=== PATIENT | male | born 1965 | race Two or more races ===

== ENCOUNTER 2024-06-19 16:47 | Emergency (ER) | payer SELFPAY ==
--- NOTE | 2024-06-19 16:54 | EKG_ITS ---
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
[2024-06-19 16:56] VITALS: BP 141/79; PULSE 76; RESP 16; TEMP 36.3; O2SAT 99; BMI 22.6
--- NOTE | 2024-06-19 17:04 | EDNOTE_ITS ---
ED General RME/HPI General Chief complaint: Altered Mental Status Stated complaint: POSSIBLE INTOXICATED Time Seen by Provider: 06/19/24 16:54 Arrival date/time: 06/19/24 16:47 RME / HPI RME / HPI narrative: 58 year old male presents to the ED BIBA from [facility] for evaluation of possible intoxication. Per medics, staff at [facility] reported patient admitted smoking a vape pen and shortly after complained of not feeling well. State he became very tired and less responsive which prompted staff to give 4mg IN Narcan. Medics state on their arrival noted blood pressure to be 80/52. State patient was given ~ 1L IVF en route and repeat SBP 130's. No other complaints reported. While in the ED patient complains of dry mouth and feeling tired. No other complaints reported. Related Data Allergies Allergy/AdvReac Type Severity Reaction Status Date / Time No Known Allergies Allergy Verified 06/19/24 17:22 Review of Systems Review of Systems Narrative Review of Systems: GEN: No fever, no chills EYES: No discharge, no visual changes, no pain HEENT: No ear pain, no congestion, no sore throat PULM: No shortness of breath, no cough, no congestion CV: No chest pain, no palpitations GI: No nausea, no vomiting, no diarrhea, no pain, no constipation : No frequency, no urgency, no dysuria MUSC/SKEL: No joint pain, no back pain SKIN: No rash NEURO: No weakness, no headache Past Medical History Past Medical History CARDIAC: Negative Congestive Heart Failure RESPIRATORY: Negative Chronic Obstructive Pulmonary Disease (COPD) GENITOURINARY: Negative Renal Disease ENDOCRINE: Negative Diabetes Mellitus Type 1 or Diabetes Mellitus Type 2 Social History SMOKING STATUS: Current some day smoker ED Exam Narrative Physical exam: GENERAL APPEARANCE: alert and oriented x 4, well-developed, well-nourished, no acute distress HEENT: Normocephalic, atraumatic; pupils 7mm bilaterally and reactive to light; EOMI; mucous membranes pink, moist; oropharynx clear NECK: Supple LUNGS: CTABL; no wheezes, no rales, no rhonchi HEART: Regular rate, regular rhythm; normal S1, S2; no murmurs ABDOMEN: non distended; normal BS; soft, no tenderness, no guarding, no rebound; no masses, no organomegaly, no hernia BACK: no CVA tenderness EXTREMITIES: atraumatic; no edema NEUROLOGIC: awake; alert and oriented x4; cranial nerves II-XII grossly intact; no focal sensory or motor deficits PSYCHIATRIC: appropriate mood and affect SKIN: warm, dry, normal color; no rashes. Course Course Course Narrative: 1800: Patients care signed out to Dr. Hawkins pending labs, reassessment, and final disposition. Quality Measures none Orders Category Date Time Status EKG (ED ONLY) *Do not use* NOW Care 06/19/24 16:54 Completed EKG (ED Only) Stat Exams 06/19/24 16:54 Draft Alcohol, Blood Medical Stat Lab 06/19/24 17:24 Completed B-Type Natriuretic Peptide Stat Lab 06/19/24 17:24 Completed CBC Stat Lab 06/19/24 17:24 Completed Comprehensive Metabolic Panel Stat Lab 06/19/24 17:24 Completed Drug Screen,Urine Stat Lab 06/19/24 19:19 Completed Magnesium Stat Lab 06/19/24 17:24 Completed Troponin I Stat Lab 06/19/24 17:24 Completed Vital Signs Vital signs: Vital Signs Temperature 97.4 F 06/19/24 16:56 Pulse Rate 76 06/19/24 16:56 Respiratory Rate 16 06/19/24 16:56 Blood Pressure 141/79 H 06/19/24 16:56 Pulse Oximetry (%) 99 06/19/24 16:56 Oxygen Delivery Method Room Air 06/19/24 16:56 Pulse ox is 99% on room air which is adequate. Discharge Plan Plan Patient Disposition: Residential/Court/Law Patient condition on transfer: Stable Prescriptions/Referrals Referrals: No Primary/Family,Physician [Primary Care Provider] - In 1 week Problem List Clinical Impression: Weakness, Marijuana abuse Patient/Caregiver Discharge Instructions Education Materials: ED Marijuana Abuse, ED Weakness (Uncertain Cause) Additional Instructions: Even though you have been discharged from the Emergency Department, there are several things that you should do to ensure that you receive proper care: 1. DO READ your discharge instructions as these contain important information concerning your medical care. Today your marijuana is positive in your urine. This may account for your symptoms today. 2. If medication has been prescribed for your condition, fill the prescription as soon as possible and follow the directions on the medication. 3. RETURN AT ONCE TO THE EMERGENCY DEPARTMENT if you have any problems or concerns. These include but are not limited to fever, worsening pain(belly, chest, head, etc?), worsening shortness of breath, uncontrollable bleeding, inability to tolerate food and water, or any condition that makes you question your well-being. Also, if your symptoms do not improve in the next 12-24 hours, return to the ER or seek medical care immediately. 4. Be sure to follow up with your regular physician or specialist as instructed at discharge as this is the best way to ensure that you receive the very best of care. If you do not have a primary care physician, please contact a physician group and make an appointment. 5. Please visit [employer] for coupons regarding your prescriptions. It is a free service for you to use and can help reduce the cost of your medication. We would like to thank you for coming today and our hope is that we served you and your family well during your stay Print Language: German MDM Patient Acuity High Acuity (complete MDM) Narrative: Selina Veras, am scribing for and in the presence of Dr. Young. 1800: Patients care signed out to Dr. Hawkins pending labs, reassessment, and final disposition. Clinical Information Provided by: patient, EMS and law enforcement Medical Records reviewed EMS Medical Records additional comments: Per EMR review, patient has no previous ED visits. Meds/Rx considered, not ordered None Labs/Rad/Tests considered, not ordered None Chronic Illness/Social Conditions which may negatively complicate care or outcome(s)-explain: other (Patient currently incarcerated ) EKG EKG Interpretation(s): EKG @ 17:48 hours. Sinus rhythm, rate 72, T-wave inversion in V1 and V2 . No acute ischemic changes. Labs Labs: Interpreted by me Lab(s) Interpretation(s): CBC and CMP within normal limits Imaging Imaging interpretation: none or see narrative above Medication Administration(s) none
[2024-06-19 17:16] VITALS: PULSE 92; RESP 96
--- NOTE | 2024-06-19 17:20 | PC.NURSE ---
PT CAME IN FOR SLURRED SPEECH AND LETHARGY S/P SMOKING MARIJUANA VAPE PEN. PT IS CURRENTLY INCARCERATED AND WAS FOUND BY GROUP HOME STAFF. PT WAS GIVEN DOSE OF NARCAN IN BY GROUP HOME STAFF PRIOR TO ARRIVAL. PT WAS FOUND BY EMS TO HAVE BP IN THE 80'S SYSTOLIC AND WAS GIVEN 1 LITER BOLUS. PT ARRIVED TO ED SLIGHTLY LETHARGIC BUT AROUSABLE TO VERBAL STIMULI. PT ABLE TO ANSWER ALL QUESTIONS AND FOLLOW ALL COMMANDS. PT REPORTED THAT HE SMOKED MARIJUANA VAPE PEN. DENIES ANY OTHER DRUG USE. OFFICERS AT BEDSIDE
[2024-06-19 17:38] VITALS: BP 136/90; PULSE 72; RESP 22; TEMP 36.9; O2SAT 96
[2024-06-19 17:52] LABS: Basophils % (Auto) 0 % (0-2.5); Eosinophils # (Auto) 0.1 Thou/mm3 (0.0-0.5); Eosinophils % (Auto) 1 % (0-10); Hematocrit 46.3 % (41.0-53.0); Hemoglobin 15.9 g/dL (13.5-16.0); Immature Granulocytes % (Auto) 1 % (0-0); Immature Granulocytes Auto 0.05 Thou/mm3 (0.00-0.00); Lymphocytes % (Auto) 9 % (10-50); Mean Corpuscular HGB Conc 34.3 g/dl (31.0-37.0); Mean Corpuscular Hemoglobin 30.6 pg (25.0-35.0); Mean Corpuscular Volume 89 fL (80-100); Monocytes # (Auto) 0.8 Thou/mm3 (0.0-0.8); Monocytes % (Auto) 8 % (0-12); Neutrophils # (Auto) 8.4 Thou/mm3 (1.8-7.7); Neutrophils % (Auto) 82 % (37-80); Nucleated Red Blood Cell % 0 /100 WBC (0); Platelet Count 168 Thou/mm3 (140-440); RDW Standard Deviation 41.9 fL (35.1-43.9); White Blood Count 10.3 Thou/mm3 (3.8-10.6)
[2024-06-19 18:05] VITALS: BP 122/81; PULSE 64; RESP 16; TEMP 36.9; O2SAT 97
[2024-06-19 18:06] LABS: B-Type Natriuretic Peptide < 20 pg/mL (0-100)
[2024-06-19 18:08] LABS: Alanine Aminotransferase 25 U/L (10-49); Albumin, Serum 4.1 gm/dL (3.5-5.0); Albumin/Globulin Ratio 1.6 (1.2-2.2); Alcohol, Blood Medical < 10.0 mg/dL (0-10.0); Alkaline Phosphatase 90 U/L (46-116); Anion Gap 11 (7-16); Aspartate Amino Transferase 36 U/L (0-34); BUN/Creatinine Ratio 8 Ratio (12-20); Blood Urea Nitrogen 10 mg/dL (9-23); Calcium 9.2 mg/dL (8.3-10.6); Calcium (Corrected) 9.2 mg/dL (8.5-10.1); Carbon Dioxide 24.5 mMol/L (20.0-31.0); Chloride 107 mMol/L (98-107); Creatinine (Component) 1.2 mg/dL (0.6-1.3); Globulin 2.5 gm/dL (2.3-3.5); Glucose 118 mg/dL (74-106); Magnesium 1.8 mg/dL (1.6-2.6); Osmolality,Calculated 283 (275-295); Potassium 4.1 mMol/L (3.4-5.1); Sodium 142 mMol/L (136-145); Total Protein 6.6 gm/dL (5.7-8.2); Troponin I < 0.020 ng/mL (0.0-0.045); eGFR > 60 See Note
--- NOTE | 2024-06-19 18:14 | PD.EDADDENDU ---
Emergency Room Addendum <Sharla Hawkins MD - Last Filed: 06/19/24 23:21> Addendum Narrative: 1800: Care assumed from Dr. Young, the previous shift emergency physician. Past medical, surgical, social and family history reviewed. Vitals and home medications reviewed. Results and treatment plan discussed. I will assume the care of the patient at this time and will follow the patient, pending checking all labs, reevaluation, EK, heart rate nontachycardic. No ST elevations or depressions. ST-T wave change in V2. No previous. Impression: No ST elevation or ischemia PE: Patient has no acute distress. Repeat vitals 122/81. Afebrile. Lying in the bed Abdomen: Soft nontender, nondistended Neuro: Looking around the room. No acute distress. Labs are reviewed and interpreted by me. Unremarkable. White count is 10 hemoglobin 15 platelets 168. Electrolytes are normal. Glucose 118. Troponin negative. Drug Screen: Positive marijuana. Negative cocaine, benzo, or methamphetamine. 1955: Patient re-evaluated. Patient reports all symptoms have resolved. The patient is alert and oriented to person, place, time, and situation. Patient is following all commands. Suspect that the patient's symptoms may be from any other reason however his marijuana is positive. At this time the patient is stable for discharge. <Kandy Camarillo - Last Filed: 06/19/24 21:59> Addendum Narrative: 1800: Care assumed from Dr. Young, the previous shift emergency physician. Past medical, surgical, social and family history reviewed. Vitals and home medications reviewed. Results and treatment plan discussed. I will assume the care of the patient at this time and will follow the patient, pending checking all labs, reevaluation, EK, heart rate nontachycardic. No ST elevations or depressions. ST-T wave change in V2. No previous. Impression: No ST elevation or ischemia PE: Patient has no acute distress. Repeat vitals 122/81. Afebrile. Lying in the bed Abdomen: Soft nontender, nondistended Neuro: Looking around the room. No acute distress. Labs are reviewed and interpreted by me. Unremarkable. White count is 10 hemoglobin 15 platelets 168. Electrolytes are normal. Glucose 118. Troponin negative. Drug Screen: 1955: Patient re-evaluated. Patient reports all symptoms have resolved. The patient is alert and oriented to person, place, time, and situation. Patient is following all commands.
[2024-06-19 21:45] LABS: Amphetamine/Methamp Scrn,U Negative (Negative); Barbiturate Screen,Urine Negative (Negative); Benzodiazepines Screen,Urine Negative (Negative); Benzoylecgonine Screen, Ur Negative (Negative); Fentanyl Screen,Urine Negative (Negative); Opiate Screen,Urine Negative (Negative); THC Screen,Urine Positive (Negative)
== END 2024-06-19 20:11 ==
PROVIDERS: Emergency Medicine; Emergency Provider Emergency Medicine
DX: F12.10 Cannabis abuse, uncomplicated (principal); R53.1 Weakness; R94.31 Abnormal electrocardiogram [ECG] [EKG]
CPT/HCPCS: 36415; 80053; 80307; 80320; 83735; 83880; 84484; 85025; 93005; 99283; G0480